=== PATIENT | male | born 1945 | race Caucasian/White ===

== ENCOUNTER → 2017-08-28 | Outpatient (CLI) | payer MEDICARE ==
[~2017-08-28] MED LIST: ALLO300T PO; ASPI-496 PO; ATOR40TA78 PO; CIME200T6 PO; DIPH25CA61 PO; FINA5TAB4 PO; FLUT1DIS IH; LISI-170 PO; METF10002 PO; PRED1TAB PO; SPIR1TAB PO; TAMS0.4C2 PO
== END | disposition home or self-care (01) ==
LOC: CVU 13:29
PROVIDERS: ATTEND Internal Medicine Cardiovascular Disease
DX: I07.1 Rheumatic tricuspid insufficiency (principal); I27.0 Primary pulmonary hypertension; E11.9 Type 2 diabetes mellitus without complications; Z95.1 Presence of aortocoronary bypass graft; Z95.2 Presence of prosthetic heart valve
CPT/HCPCS: 93306